=== PATIENT | male | born 1995 | race Caucasian/White ===

== ENCOUNTER 2017-10-11 14:23 | Emergency (ER) | payer OTHER ==
[2017-10-11 14:36] VITALS: BP 114/57
--- NOTE | 2017-10-11 15:07 | UC ---
Throat Pain/Nasal Dex HPI - HPI Summary HPI Summary: Pt is accompanied by mother. Mom reports pt walked down stairs and stated "i don't feel right" mom reports that pt then "passed out" for a "few seconds" now has c/o left side ear pain that pt was diagnosed last week with otitis externa, continues to have ST, enlarged and tender lymph node lef tsubmandibular, light headed and generalized fatigue. Pt also began Brio for SOB possible asthma by PCP in last 2-3 weeks. Pt states he was bit by tick ~ 2 weeks ago - History of Current Complaint Chief Complaint: UCEar Stated Complaint: SOB Time Seen by Provider: 10/11/17 14:42 Hx Obtained From: Patient, Family/Launch Manager Onset/Duration: Sudden Onset, Still Present Severity: Moderate Pain Intensity: 9 Associated Signs & Symptoms: Positive: Dysphagia Related History: Seasonal Allergies - Epiglottits Risk Factors Epiglottis Risk Factors: Sudden Onset - Allergies/Home Medications Allergies/Adverse Reactions: Allergies Allergy/AdvReac Type Severity Reaction Status Date / Time No Known Allergies Allergy Verified 10/11/17 14:31 Home Medications: Home Medications Albuterol HFA INHALER* [Ventolin HFA Inhaler*] 1 - 2 puff INH Q4H PRN 10/11/17 [ History Confirmed 10/11/17] Amoxicillin PO (*) [Amoxicillin 875 MG (*)] 875 mg PO BID 10/11/17 [History Confirmed 10/11/17] Desloratidine (NF) [Clarinex (NF)] 5 mg PO DAILY 10/11/17 [History Confirmed ] Fluticasone/Vilanterol MDI(NF) [Breo Ellipta MDI (NF)] 1 puff INH DAILY [History Confirmed 10/11/17] Meclizine TAB* [Antivert 12.5 TAB*] 12.5 mg PO TID PRN 10/11/17 [History Confirmed 10/11/17] Neomyc/Polym/HC 1% OTIC SUSP* [Cortisporin Otic Susp 1%*] 4 drop LEFT EAR QID [History Confirmed 10/11/17] PMH/Surg Hx/FS Hx/Imm Hx Previously Healthy: Yes Cardiovascular History: Other - EKG irregularity, per mom Other Cardiovascular History: previous irregular EKG Respiratory History: Asthma - Surgical History Surgical History: None - Family History Known Family History: Positive: Cardiac Disease - Social History Occupation: Employed Full-time Alcohol Use: None Substance Use Type: None Smoking Status (MU): Never Smoked Tobacco Have You Smoked in the Last Year: No Review of Systems Constitutional: Chills, Fatigue Skin: Rash - left lateral chest Eyes: Negative ENT: Sore Throat, Ear Ache Respiratory: Negative Cardiovascular: Negative Gastrointestinal: Negative Genitourinary: Negative Motor: Negative Neurovascular: Negative Musculoskeletal: Negative Neurological: Headache Psychological: Negative Is Patient Immunocompromised?: No All Other Systems Reviewed And Are Negative: Yes Physical Exam Triage Information Reviewed: Yes Appearance: Other: - anxious Vital Signs: Initial Vital Signs Temp 98.5 F 10/11/17 14:26 Pulse 88 10/11/17 14:26 Resp 18 10/11/17 14:26 BP 114/57 10/11/17 14:26 Pulse Ox 100 10/11/17 14:26 Vital Signs Reviewed: Yes Eye Exam: Normal ENT Exam: Other ENT: Positive: Tonsillar swelling - left tonsil, much larger than right and pustular, Tonsillar exudate - left only Dental Exam: Normal Neck exam: Other Neck: Positive: Enlarged Nodes @ - left submandibular > 1 cm Respiratory Exam: Normal Cardiovascular Exam: Normal Abdominal Exam: Normal Abdomen Description: Positive: Nontender Musculoskeletal Exam: Normal Neurological Exam: Normal Psychological Exam: Normal Skin Exam: Other - circular erythematous rash, left mid lateral chest. non tender, flat Throat Pain/Nasal Course/Dx - Course Course Of Treatment: I discussed with the pt's mother my concerns for peritonsiller abscess, and lyme disease and need to for further evaluation and testing at the [facility] ER. Pt's mother and pt agreed to plan of care. - Differential Dx/Diagnosis Differential Diagnosis/HQI/PQRI: Mononucleosis, Peritonsillar Abscess, Tonsillitis Provider Diagnoses: tonsillitis. rash. possible peritonsillar abscess. possible lyme disease - Physician Notification/Consults Discussed Patient Care With: [facility] ED provider - accepted by provider Time Discussed With Above Provider: 10:15 Discharge - Sign-Out/Discharge Documenting (check all that apply): Discharge/Admit/Transfer - Discharge Plan Condition: Stable Disposition: HOME Patient Education Materials: Acute Rash (ED), Tonsillitis (ED), Lightheadedness (ED) Referrals: Tigre Moreira [Primary Care Provider] - Additional Instructions: It is strongly recommended that you go directly to the closest Emergency Room for further testing and evaluation. - Billing Disposition and Condition Condition: STABLE Disposition: Home
== END 2017-10-11 15:05 | disposition home or self-care (01) ==
LOC: UCCORT 14:23
DX: J03.90 Acute tonsillitis, unspecified (principal); R21 Rash and other nonspecific skin eruption; J45.909 Unspecified asthma, uncomplicated
CPT/HCPCS: 93005; 99212; G0463